=== PATIENT | male | born 1960 | race Caucasian/White ===

== ENCOUNTER 2023-03-18 09:52 | Outpatient (OUT) | payer OTHER, SELFPAY ==
--- NOTE | 2023-03-18 | XR_ITS ---
The [address] [address] Patient Name: LYUDMILA ISIDRO MRN: [id number] date: 1960 Sex: M Assigned Patient Location: RAD Current Patient Location: RAD Accession/Order Number: [id number] Exam Date: 03/18/2023 10:04 Report Date: 03/18/2023 13:54 At the request of: EDUARDO TOLLIVER Procedure: XR foot RT min 3V PROCEDURE: XR foot RT min 3V HISTORY: RIGHT FOOT PAIN COMPARISON: None. FINDINGS: BONES:Persistent flexion of the second third toes. 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 No fracture, dislocation, or significant degenerative joint disease. SOFT TISSUES:No visible soft tissue swelling. EFFUSION:None visible. OTHER: Negative. XR/XR foot RT min 3V IMPRESSION: 1. No acute abnormality or significant degenerative joint disease. 2. 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 Electronically authenticated by: IRVIN CAZARES Date: 03/18/2023 13:54
== END 2023-03-18 09:53 | disposition home or self-care (01) ==
LOC: RAD 09:53
PROVIDERS: Visit Provider Podiatrist Foot & Ankle Surgery
DX: M79.671 Pain in right foot (principal)
CPT/HCPCS: 73630

== ENCOUNTER 2023-05-10 10:06 | Emergency (ER) | payer OTHER, SELFPAY ==
[2023-05-10 10:11] VITALS: BP 145/89; PULSE 88; TEMP 37; O2SAT 98; BMI 32.6
--- NOTE | 2023-05-10 10:31 | ED_ITS ---
HPI HPI - General Adult General Chief complaint: Skin/Abscess/Foreign Body Stated complaint: RASH ON RIGHT HAND Time Seen by Provider: 05/10/23 10:22 Source: patient Mode of arrival: walk-in History of Present Illness HPI narrative: Patient presenting to us with right hand rash that showed up almost 4 days ago after he was doing some work in his garage, the patient mentioned that the rash showed up the first day then it continues to itch 2 days ago he was scratching his right eye and after that he developed this lower eyelid swelling in both eyes. No blurry vision no other complaints no other rashes no fever no chills no other concerns. Related Data Previous Rx's ?Medication ?Instructions ?Recorded diphenhydramine-zinc acetate 2 1 applic topical TID PRN itching 05/10/23 %-0.1 % topical cream (Benadryl #28.3 grams Extra Strength) prednisone 20 mg tablet 40 mg (2 x 20 mg) PO DAILY 5 days 05/10/23 #10 tabs Allergies Allergy/AdvReac Type Severity Reaction Status Date / Time No Known Drug Allergies Allergy Verified 05/10/23 10:15 Opioid HPI Opioid Management Most Recent Opioid Data: No Data to Display Review of Systems ROS Status of ROS 10 or more systems reviewed and unremark able except as noted in history and below Exam Narrative Exam Narrative: Nurses notes and vital signs reviewed and patient is not hypoxic. General: Well-appearing and in no apparent distress. Skin: Warm, dry, no pallor noted. No rash. Head: Normocephalic, atraumatic. Neck: Supple, non-tender. Eye: Pupils are equal, round and EOMI. No scleral icterus. Patient have bilateral lower eyelid mild edema and conjunctival erythema in the lower eyelid but the rest of the eye is normal bilaterally with no hyphema no hypopyon no signs of ulceration no conjunctival erythema in the orbit itself Ears, Nose, Mouth, and Throat: TM are clear, no nasal mucosal hypertrophy. Oral mucosa is moist, no posterior oropharynx erythema, uvula is mid-line Cardiovascular: Regular Rate and Rhythm without murmur, gallop or rub. Respiratory: No accessory muscle use or respiratory distress. Lungs are clear to auscultation, no wheezing, rales or rhonchi Chest Wall: no tenderness Back: No midline thoracic or lumbar vertebral tenderness. No CVA tenderness Musculoskeletal: normal ROM, no calf or popliteal tenderness, no lower extremity edema/swelling GI: Abdomen is soft, non-distended. Normal bowel sounds. No masses appreciated. No tenderness to palpation. No rebound, guarding, or rigidity noted. Neurological: A&O x4. No cranial nerve dysfunction observed. No truncal ataxia. Moves all extremities. Sensation intact. Psychiatric: Cooperative and interactive. Normal mood and affect. Skin examination showed that the patient have maculopapular rash on the dorsum of the right hand with no hotness or any signs of infection. Some scratches of itching there Constitutional Vital Signs, click to edit/add: Last Vital Signs Temp 98.6 F 05/10/23 10:11 Pulse 88 05/10/23 10:11 Resp 18 05/10/23 10:11 BP 145/89 H 05/10/23 10:11 Pulse Ox 98 05/10/23 10:11 O2 Del Method Room Air 05/10/23 10:11 Course Vital Signs Vital signs: Vital Signs Temperature 98.6 F 05/10/23 10:11 Pulse Rate 88 05/10/23 10:11 Respiratory Rate 18 05/10/23 10:11 Blood Pressure 145/89 H 05/10/23 10:11 Pulse Oximetry 98 05/10/23 10:11 Oxygen Delivery Method Room Air 05/10/23 10:11 Temperature 98.6 F 05/10/23 10:11 Pulse Rate 88 05/10/23 10:11 Respiratory Rate 18 05/10/23 10:11 Blood Pressure 145/89 H 05/10/23 10:11 Pulse Oximetry 98 05/10/23 10:11 Oxygen Delivery Method Room Air 05/10/23 10:11 Medical Decision Making [facility] Narrative Medical decision making narrative: The patient mostly presenting with contact dermatitis and his bilateral edema could be secondary to the allergy as well he was started on prednisone as well as Benadryl cream. The patient is to follow up with primary care physician in next 2-3 days or to return to the emergency department should any of the signs or symptoms worsen or new symptoms develop. The patient agrees with the following Diagnosis and Treatment plan and the patient will be discharged home. Discharge Plan Discharge Stand Alone Forms: Portal Instructions Chief Complaint: Skin/Abscess/Foreign Body Clinical Impression: Contact dermatitis and eczema Acute allergic conjunctivitis Qualifiers: Laterality: bilateral Qualified Code(s): H10.13 - Acute atopic conjunctivitis, bilateral Patient Disposition: Home, Self-Care Time of Disposition Decision: 10:29 Prescriptions / Home Meds: New prednisone 20 mg tablet 40 mg PO DAILY 5 Days Qty: 10 0RF Benadryl Extra Strength 2-0.1 % cream 1 applic topical TID PRN (Reason: itching) Qty: 28.3 0RF Print Language: Anguill[place] Instructions: Contact Dermatitis (DC) Referrals: Physician,Non-Staff, MD [Primary Care Provider] - 1 week
== END 2023-05-10 10:40 | disposition home or self-care (01) ==
PROVIDERS: Emergency Provider Emergency Medicine
DX: L25.9 Unspecified contact dermatitis, unspecified cause (principal); H10.13 Acute atopic conjunctivitis, bilateral
CPT/HCPCS: 99283

== ENCOUNTER 2023-05-12 06:07 | Emergency (ER) | payer OTHER, SELFPAY ==
[2023-05-12 06:13] VITALS: BP 144/95; PULSE 80; TEMP 36.6; O2SAT 98; BMI 32.5
--- NOTE | 2023-05-12 06:25 | PC.NURSE ---
Patient to ED with c/o worsening rash of right hand and new onset of same rash to left hand and below bilateral eyes. He attempted to go to work today but was told by his employer to come back to the ER. 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 He was seen in this ED on Friday and given a prescription for Prednisone and states he has been taking it as prescribed. The rash continues to get worse. He has also been applying topical Benadryl ointment.
--- NOTE | 2023-05-12 06:27 | ED.SKABFB1 ---
HPI - Skin/Abscess/Foreign Bdy General Chief complaint: Skin/Abscess/Foreign Body Stated complaint: rash Time Seen by Provider: 05/12/23 06:11 Source: patient Mode of arrival: walk-in History of Present Illness HPI narrative: 62-year-old male presents to the emergency department for a chief complaint of rash. It developed a few days ago and its mostly on his right hand at the base of his index finger but also below each eye. He states at least one of the person at work has it as well and when he talked to his boss he indicated that he thought it was a new paint that they are using. The patient has not been out in brush or weeds. It is pruritic and continuous. Related Data Previous Rx's ?Medication ?Instructions ?Recorded diphenhydramine-zinc acetate 2 1 applic topical TID PRN itching 05/10/23 %-0.1 % topical cream (Benadryl #28.3 grams Extra Strength) prednisone 20 mg tablet 40 mg (2 x 20 mg) PO DAILY 5 days 05/10/23 #10 tabs prednisone 10 mg tablet See Rx Instructions .Route 05/12/23 .COMPLEX #30 tabs Allergies Allergy/AdvReac Type Severity Reaction Status Date / Time No Known Drug Allergies Allergy Verified 05/10/23 10:15 Review of Systems ROS Narrative A ten point review of systems is negative except as noted above. Exam Narrative Exam Narrative: Nurses note and vital signs reviewed and patient is not hypoxic. General: The patient appears well and in no apparent distress. Patient is resting comfortably on cart. Skin: Warm, dry, no pallor noted. There is erythematous rash present on the dorsum of his right hand, mostly at the base of the index finger. Smaller amount is present below each eye. Head: Normocephalic, atraumatic Eye: Normal conjunctiva, no drainage Ears, Nose, Mouth, and Throat: oral mucosa is moist. Nares patent. Cardiovascular: Regular Rate and Rhythm Respiratory: Patient is in no distress, no accessory muscle use, lungs are clear to auscultation, no wheezing, rales or rhonchi Back: non-tender GI: Soft and nontender Musculoskeletal: The patient has no evidence of calf tenderness, no pitting edema, symmetrical pulses noted bilaterally Neurological: A&O, normal speech Psychiatric: Cooperative Constitutional Vital Signs, click to edit/add: Last Vital Signs Temp 97.9 F 05/12/23 06:13 Pulse 80 05/12/23 06:13 Resp 16 05/12/23 06:13 BP 144/95 H 05/12/23 06:13 Pulse Ox 98 05/12/23 06:13 O2 Del Method Room Air 05/12/23 06:13 Course Vital Signs Vital signs: Vital Signs Temperature 97.9 F 05/12/23 06:13 Pulse Rate 80 05/12/23 06:13 Respiratory Rate 16 05/12/23 06:13 Blood Pressure 144/95 H 05/12/23 06:13 Pulse Oximetry 98 05/12/23 06:13 Oxygen Delivery Method Room Air 05/12/23 06:13 Temperature 97.9 F 05/12/23 06:13 Pulse Rate 80 05/12/23 06:13 Respiratory Rate 16 05/12/23 06:13 Blood Pressure 144/95 H 05/12/23 06:13 Pulse Oximetry 98 05/12/23 06:13 Oxygen Delivery Method Room Air 05/12/23 06:13 MDM - Skin/Abscess/Foreign Bdy MDM Narrative Medical decision making narrative: My clinical impression is that the patient has contact dermatitis. He was given IM Solu-Medrol and prescribed a longer tapering dose of prednisone. Treatment diagnosis and follow-up were discussed with the patient. Differential Diagnosis Differential diagnosis: Likely cellulitis, eczema and contact dermatitis Discharge Plan Discharge Stand Alone Forms: Portal Instructions Chief Complaint: Skin/Abscess/Foreign Body Clinical Impression: Contact dermatitis Patient Disposition: Home, Self-Care Time of Disposition Decision: 06:25 Condition: Good Mode of Transportation: Private Vehicle Prescriptions / Home Meds: New prednisone 10 mg tablet See Rx Instructions .ROUTE .COMPLEX Qty: 30 0RF Rx Instructions: 4 by mouth daily for three days then 3 by mouth daily for three days then 2 by mouth daily for three days then 1 by mouth daily for three days No Action prednisone 20 mg tablet 40 mg PO DAILY 5 Days Qty: 10 0RF Benadryl Extra Strength 2-0.1 % cream 1 applic topical TID PRN (Reason: itching) Qty: 28.3 0RF Print Language: Martiniquais Instructions: Contact Dermatitis (ED) Additional Instructions: Discontinue the first prednisone prescription Referrals: Physician,Non-Staff, MD [Primary Care Provider] - 1 week
[2023-05-12] MEDS: METHYLPREDNISOLONE SOD SUCC PF 125 MG/2 ML VIAL IM (06:45)
== END 2023-05-12 06:56 | disposition home or self-care (01) ==
PROVIDERS: Emergency Provider Emergency Medicine
DX: L25.9 Unspecified contact dermatitis, unspecified cause (principal)
CPT/HCPCS: 96374; 99284; J2919